=== PATIENT | female | born 1950 | race Caucasian/White ===

== ENCOUNTER 2017-02-18 15:18 | Emergency (ER) | payer BC ==
[2017-02-18] MEDS ORDERED: MULTAQ400 M1 PO (15:35)
[2017-02-18] MEDS ORDERED: XARELTO20 M1 PO (15:35)
[2017-02-18] MEDS ORDERED: JANTOVEN (15:36)
[2017-02-18] MEDS ORDERED: JANUVIA100 M1 PO (15:47)
[2017-02-18] MEDS ORDERED: HYDROCHLOROTH12.5 M2 (15:48)
[2017-02-18] MEDS ORDERED: DICLOFENAC SODI75 M2 PO (15:48)
[2017-02-18] MEDS ORDERED: NORCO 5-325 TA1 EACH PO (16:34)
== END 2017-02-18 16:48 ==
LOC: EDMED 15:18
DX: S42.201A Unspecified fracture of upper end of right humerus, initial encounter for closed fracture (principal); I10 Essential (primary) hypertension; E11.9 Type 2 diabetes mellitus without complications; W10.9XXA Fall (on) (from) unspecified stairs and steps, initial encounter